=== PATIENT | female | born 1980 | race Caucasian/White ===

== ENCOUNTER → 2022-07-02 09:57 | Outpatient (BNVA) | payer OTHER, SELFPAY | PROVIDERS: Visit Provider Internal Medicine Rheumatology | DX: M19.90 Unspecified osteoarthritis, unspecified site (principal); Z11.59 Encounter for screening for other viral diseases; M05.79 Rheumatoid arthritis with rheumatoid factor of multiple sites without organ or systems involvement; Z71.85 Encounter for immunization safety counseling; Z79.899 Other long term (current) drug therapy | CPT/HCPCS: 36415; 73562; 80076; 82565; 85025; 85651; 86140; 86480; 86704; 86803; 87340 ==

== ENCOUNTER → 2022-10-29 13:42 | Outpatient (BNVA) | payer OTHER, SELFPAY | PROVIDERS: PCP Internal Medicine; Visit Provider Internal Medicine Rheumatology | DX: M05.79 Rheumatoid arthritis with rheumatoid factor of multiple sites without organ or systems involvement (principal); Z79.899 Other long term (current) drug therapy; Z71.85 Encounter for immunization safety counseling; M24.562 Contracture, left knee | CPT/HCPCS: 36415; 80076; 82565; 85025; 86140 ==

== ENCOUNTER → 2023-04-08 15:51 | Outpatient (BNVA) | payer OTHER, SELFPAY | PROVIDERS: PCP Internal Medicine; Visit Provider Internal Medicine Rheumatology | DX: Z79.899 Other long term (current) drug therapy (principal); M05.79 Rheumatoid arthritis with rheumatoid factor of multiple sites without organ or systems involvement; Z71.85 Encounter for immunization safety counseling; M24.562 Contracture, left knee | CPT/HCPCS: 36415; 80076; 82565; 85025; 85651; 86140 ==

== ENCOUNTER → 2023-07-15 14:52 | Outpatient (BNVA) | payer OTHER, SELFPAY | PROVIDERS: PCP Internal Medicine; Visit Provider Internal Medicine Rheumatology | DX: M05.79 Rheumatoid arthritis with rheumatoid factor of multiple sites without organ or systems involvement (principal); Z79.899 Other long term (current) drug therapy; Z71.85 Encounter for immunization safety counseling; M24.562 Contracture, left knee | CPT/HCPCS: 36415; 80076; 82565; 85025; 86140 ==

== ENCOUNTER → 2023-11-26 10:44 | Outpatient (BNVA) | payer OTHER, SELFPAY | PROVIDERS: PCP Internal Medicine; Visit Provider Internal Medicine Rheumatology | DX: Z11.59 Encounter for screening for other viral diseases (principal); Z11.1 Encounter for screening for respiratory tuberculosis; Z79.899 Other long term (current) drug therapy; M05.79 Rheumatoid arthritis with rheumatoid factor of multiple sites without organ or systems involvement | CPT/HCPCS: 80076; 82565; 85025; 85651; 86140; 86480; 86704; 86803; 87340 ==

== ENCOUNTER → 2024-06-02 10:50 | Outpatient (BNVA) | payer OTHER, SELFPAY | PROVIDERS: PCP Internal Medicine; Visit Provider Internal Medicine Rheumatology | DX: Z79.899 Other long term (current) drug therapy (principal) | CPT/HCPCS: 36415; 80076; 82565; 85025; 85651; 86140 ==

== ENCOUNTER → 2024-11-17 10:50 | Outpatient (BNVA) | payer OTHER, SELFPAY | PROVIDERS: PCP Internal Medicine; Visit Provider Internal Medicine Rheumatology | DX: Z79.899 Other long term (current) drug therapy (principal) | CPT/HCPCS: 36415; 80076; 82306; 82565; 85025; 85651; 86140; 86480; 86704; 86803; 87340 ==